=== PATIENT | female | born 1985 | race Caucasian/White ===

== ENCOUNTER 2019-01-08 01:10 | Inpatient (IN) | payer SELFPAY ==
[~2019-01-08] VITALS: Ht 170.2 cm; Wt 156.5 kg
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
[2019-01-08] MEDS ORDERED: VANCOMYCIN 1 GM in IV D5W 250 ML IV ONE (01:30)
--- NOTE | 2019-01-08 01:30 | NUR ---
PT BIBRA 62 C/O SUBSTERNAL CP W/ SOB X 2HRS RADIATING TO BACK. PT AXO4. RESPIRATIONS EVEN AND UNLABORED. NO SOB, NOTED. PT PUT ON THE CHRONIC DISEASE MANAGER AND PULSE OX.
[2019-01-08] MEDS ORDERED: VANCOMYCIN 1 GM VIAL ONE ×2 (01:33→01:36)
[2019-01-08 02:41] LABS: BASOPHILS # (AUTO) 0.2 /CMM (0.0-0.2); BASOPHILS % (AUTO) 1.9 % (0.0-2.0); EOSINOPHILS % (AUTO) 4.3 % (0.0-6.0); HEMATOCRIT 40 % (33-45); LYMPHOCYTES # (AUTO) 1.2 /CMM (0.8-4.8); LYMPHOCYTES % (AUTO) 11.5 % (20.0-44.0); MEAN CORPUSCULAR HGB CONC 33 g/dl (31.0-36.0); MEAN CORPUSCULAR VOLUME 83 fL (82-100); MONOCYTES # (AUTO) 0.4 /CMM (0.1-1.30); MONOCYTES % (AUTO) 4.2 % (2.0-12.0); NEUTROPHILS # (AUTO) 7.9 /CMM (1.8-8.9); NEUTROPHILS % (AUTO) 78.1 % (43.0-81.0); PLATELET COUNT (AUTO) 230 /CMM (150-450); RED BLOOD CELL COUNT(AUTO) 4.86 MIL/uL (4.0-5.2); WHITE BLOOD COUNT (AUTO) 10.1 K/uL (4.3-11.0)
[2019-01-08 02:44] LABS: CALCIUM, SERUM 8.9 mg/dL (8.5-10.1); CARBON DIOXIDE 28 mmol/L (21-32); CHLORIDE 103 mmol/L (98-107); CREATININE 0.6 mg/dL (0.6-1.3); GLUCOSE 90 mg/dL (74-106); POTASSIUM 3.9 mmol/L (3.5-5.1); SODIUM SERUM 137 mmol/L (136-145); UREA NITROGEN, BLOOD 14 mg/dL (7-18)
--- NOTE | 2019-01-08 02:55 | NUR ---
REDNESS NOTED AROUND IV SITE, DURING VANCOMYCIN INFUSION. INFUSION STOPPED. ER MD AWARE. WILL CARRY OUT ORDERS.
[2019-01-08] MEDS ORDERED: diphenhydrAMINE HCL 50 MG/ML VIAL ONE (02:57)
[2019-01-08] MEDS ORDERED: diphenhydrAMINE HCL 50 MG/ML VIAL IV ONE (03:00)
[2019-01-08] MEDS ORDERED: IV NS 0.9% 1,000 ML IV PRN (03:30)
[2019-01-08] MEDS ORDERED: ZOLPIDEM TARTRATE 5 MG TABLET PO PRN (03:30)
[2019-01-08] MEDS ORDERED: Z GUARD REMEDY 2 OZ OINT TP PRN (03:30)
[2019-01-08] MEDS ORDERED: ONDANSETRON HCL/PF 4 MG/2 ML VIAL IVP PRN (03:30)
[2019-01-08] MEDS ORDERED: diphenhydrAMINE HCL 50 MG/ML VIAL IV PRN (03:30)
[2019-01-08] MEDS ORDERED: HYDROCODONE/APAP 5/325MG 1 EACH TABLET PO PRN (03:30)
[2019-01-08] MEDS ORDERED: MAGNESIUM HYDROXIDE 30 ML UDC PO PRN (03:30)
[2019-01-08] MEDS ORDERED: ACETAMINOPHEN 325 MG TABLET PO PRN (03:30)
--- NOTE | 2019-01-08 04:10 | NUR ---
REPORT GIVEN TO ISHMAEL ROBLERO FOR SHAUN.
[2019-01-08 04:13] LABS: EOSINOPHILS % (MANUAL) 6 % (0-4); LYMPHOCYTES % (MANUAL) 16 % (16-48); MONOCYTES % (MANUAL) 5 % (0-11.0); NEUTROPHILS % (MANUAL) 73 (42-76)
[2019-01-08 04:30] VITALS: BP 90/47
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
--- NOTE | 2019-01-08 05:00 | NUR ---
MS RN NOTE CHECKED ON PATIENT FOR ALLERGIC REACTION NONE NOTED. PATIENT SLEEPING. EASILY AROUSABLE.
--- NOTE | 2019-01-08 07:00 | NUR ---
PATIENT DENIES SUICIDAL IDEATION AT THIS TIME.
[2019-01-08] MEDS ORDERED: FEE PK DOSING 1 MIN EA MC ONE (07:27)
[2019-01-08 08:00] VITALS: BP 95/53
[2019-01-08] MEDS ORDERED: VANCOMYCIN 1 GM in IV D5W 250 ML IV SCH (09:00)
--- NOTE | 2019-01-08 09:00 | NUR ---
PATIENT REFUSED TROPONIN DRAW AT THIS TIME.
[2019-01-08] MEDS ORDERED: VANCOMYCIN 1.5 GM in IV D5W 500 ML IV SCH (12:00)
--- NOTE | 2019-01-08 12:15 | NUR ---
SPOKE TO ANGELA FROM PHARMACY. MADE AWARE OF PATIENT'S COMPLAINTS OF REDNESS AT IV SITE WITH X1 ER VANCO INFUSION. SHE STATES IT IS DUE TO THE RATE, RUN AT LOWER RATE.
--- NOTE | 2019-01-08 12:23 | NUR ---
RUNNING VANCO @50mL/HR PER PHARMACY. WILL MONITOR FOR REDNESS AT IV SITE
--- NOTE | 2019-01-08 12:45 | NUR ---
NO SIGNS OF REDNESS AT IV SITE AT THIS TIME. INCREASED VANCO RATE TO 150mL/HR.
[2019-01-08] MEDS: ENOXAPARIN SODIUM 40 MG/0.4 ML DISP.SYRIN SQ SCH (13:29)
--- NOTE | 2019-01-08 14:00 | NUR ---
NO REDNESS AT IV SITE WITH VANCO INFUSION RUNNING @250mL/HR. WILL CONTINUE TO MONITOR
--- NOTE | 2019-01-08 14:37 | NUR ---
DR. DOWNEY HAS SEEN PATIENT. SHE IS AWARE OF IV SITE REDNESS WITH VANCO INFUSION. OK TO RUN AT A SLOWER RATE. DR. DOWNEY IS AWARE OF PTS REFUSAL FOR LAB DRAWS/INJECTIONS REQUESTS FOR MULTIPLE TRAYS OF FOOD.
--- NOTE | 2019-01-08 15:00 | NUR ---
PATIENT REFUSED TROPONIN RE-DRAW AGAIN.
[2019-01-08 16:00] VITALS: BP 137/71
--- NOTE | 2019-01-08 16:00 | NUR ---
PATIENT DENIES TAKING ANY HOME MEDS. MESSAGE RELAYED TO MED RECON
[2019-01-08] MEDS: NYSTATIN TOP POWDER 15 GM BOTTLE TP SCH (17:00)
--- NOTE | 2019-01-08 20:32 | NUR ---
RN NOTES 1999 HEARD PATIENT YELLING, SCREAMING, CURSING AT A STAFF INSIDE THE ROOM. INTERVENED AND FOUND OUT SHE HAS AN ORDER FOR SITTER BECAUSE SHE MENTIONED IN ER THAT SHE WAS SUICIDAL. AM RN RUSTAM CAME INTO THE ROOM AND EXPLAINED THAT IT WAS ORDERED BY DR. DOWNEY AND THAT SHE AGREED FOR A SITTER EARLIER. EXPLAINED TO PATIENT PROTOCOL ABOUT HAVING SUICIDAL IDEATION; SITTER HAS TO BE WITH HER UNTIL CLEARED BY MD THAT SHE IS SAFE. SHE DENIES BEING SUICIDAL; SHE DOES NOT WANT THE SITTER INSIDE THE ROOM, SHE WANTS SITTER TO STAY OUTSIDE OF HER ROOM, WANTS CURTAIN DRAWN AND DOOR CLOSED . PATIENT THREATENED TO GO AGAINST MEDICAL ADVISE. WILL STAY IF SITTER ORDER WILL BE DISCONTINUED. SPOKE TO Brittaney MUNOZ NP CT SCAN SPECIAL PROCEDURES TECHNOLOGIST FOR Gift Card Combo. WANTED CRISIS TEAM TO EVALUATE PATIENT; WILL NOT DISCONTINUE SITTER ORDER UNTIL CLEARED BY CRISIS TEAM. SPOKE TO GPS REFINING MACHINE OPERATORCLINTON AND ASKED ME TO CALL ENERGY MANAGER ABOUT IT. SPOKE TO KIMBERLY PRODUCT PLANNER AND EXPLAINED ABOVE SITUATION; HAD A 3WAY CALL WITH JM IN ER; MADE AWARE OF THE SITUATION; ALSO MENTIONED TO HIM THE ONLY FEMALE STAFF ALLOWED IN THE ROOM SO MAKE SURE TO COME SEE THE PRIMARY RN FIRST BEFORE GOING INTO THE ROOM. A FEMALE STAFF SHOULD BE WITH HER INSIDE THE ROOM. PRIMARY RN PAULINO . Addendum: 01/09/19 at 0454 by LIVE HAMMER RN 0 STILL REFUSES SITTER INSIDE HER ROOM. PRODUCT PLANNERKIMBERLY AWARE; NO CALL RECEIVED FROM JM. PATIENT WANTED TO AMBULATE AROUND BUT REFUSED THE SITTER, FLORENTINO SAAVEDRA TO WALK WITH HER. EXPLAINED TO PATIENT ABOUT HER SAFETY. PATIENT CALM; AGREED TO HAVE STAFF WITH HER BUT SHE PREFERS RACHEL TO WALK WITH HER. YONI RAMOS WALKED WITH HER WHILE THE FLORENTINO STEPHENS COVER HER PATIENTS IN THE UNIT. PATIENT WAS PLEASANT AND CALM WHILE AMBULATING. DENIES SOB/DISCOMFORT. 0000 PATIENT IN THE ROOM, STILL REFUSED SITTER IN THE ROOM. PREFERS CURTAIN DRAWN AND DOOR CLOSED DESPITE REPEATED EXPLANATION OF SAFETY MEASURES DUE TO SUICIDAL IDEATION. PATIENT STILL DENIES BEING SUICIDAL. 0430 NO FURTHER EPISODE OF SCREAMING OR YELLING AT STAFF; PATIENT CALM; NO IV SITE AT THIS TIME DUE TO REFUSAL REPORTED BY PRIMARY RN, PAULINO. STILL REFUSES SITTER. AWAITING FOR PSYCH RADHA; KIMBERLY, ENERGY MANAGER AWARE.
--- NOTE | 2019-01-08 20:43 | NUR ---
MS TRISTON MILLAN RN OPENING NOTES: RECIEVED PT IN STABLE CONDITION. WANTS ONLY FEMALE STAFF IN THE ROOM DUE TO PERSONAL REASONS THAT WERE CHARTED PREVIOUSLY. DOCTORS AND STAFF AWARE. PT IN NO ACUTE DISTRRESS. BED IN LOCKED LOW POSITION AND CALL LIGHT WITHIN REACH. WILLL CONTINUE TO MONITER.
--- NOTE | 2019-01-08 20:59 | NUR ---
PT PULLED OUT IV. IN RIGHT FOREARM. PT REFUSES TO HAVE A NEW ONE PT IN
[2019-01-08] MEDS: LINEZOLID 600 MG TABLET PO SCH (21:59)
[2019-01-09] VITALS: BP 136/71
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
--- NOTE | 2019-01-09 06:47 | NUR ---
RN NOTES AMBULATING WITH SHIPPING TEAM LEADER; WANTED TO GO SMOKE; GETTING UPSET WHEN EXPLAINED ABOUT SMOKE FREE POLICY. STARTING TO YELL. SENT A MESSAGE TO KIARRA GARRISON REVENUE FIELD AUDITOR ; BUT DOES NOT WANT TO WAIT ; SIGNED THE WAIVER FOR SMOKING. ASSISTED BY STAFF
[2019-01-09 08:00] VITALS: BP 138/74
--- NOTE | 2019-01-09 08:00 | NUR ---
MS1/RN AM SHIFT INITIAL NOTES RECEIVED PT AWAKE IN BED, A/O X 4, DENIES ANY SYMPTOMS, SITTER OUTSIDE, PT REFUSED SITTER INSIDE THE ROOM BUT IS BEING MONITORED CLOSELY. NO ACUTE CHANGE OF CONDITION OR DISTRESS NOTED, PT DENIES WANTING TO HURT HERSELF. ON ROOM AIR SATURATING @ 97%, RESPIRATIONS EVEN AND UNLABORED. PT HAS NO IV SITE, REFUSED INSERTION, MD AWARE. PT ALSO INITIALLY REFUSED BLOOD DRAW BUT I WAS ABLE TO CONVINCE HER, EXPLAINED THAT LAB DRAW IS NEEDED TO MONITOR THE PROGRESSION OF TREATMENT. LAB NOTIFIED TO RETURN TO PT'S ROOM FOR A DRAW. PT IS COMFORTABLE AT THIS TIME, SCHEDULED AM MEDS TO BE GIVEN. CL WITHIN REACHED AND SAFETY MAINTAINED. ON GOING MONITORING.
[2019-01-09 08:29] LABS: BASOPHILS % (AUTO) 0.5 % (0.0-2.0); EOSINOPHILS % (AUTO) 5.6 % (0.0-6.0); HEMATOCRIT 40 % (33-45); HEMOGLOBIN 12.7 g/dL (11.5-14.8); LYMPHOCYTES # (AUTO) 1.3 /CMM (0.8-4.8); LYMPHOCYTES % (AUTO) 17.9 % (20.0-44.0); MEAN CORPUSCULAR HGB CONC 32 g/dl (31.0-36.0); MEAN CORPUSCULAR VOLUME 82 fL (82-100); MONOCYTES # (AUTO) 0.3 /CMM (0.1-1.30); MONOCYTES % (AUTO) 4.2 % (2.0-12.0); NEUTROPHILS # (AUTO) 5.4 /CMM (1.8-8.9); NEUTROPHILS % (AUTO) 71.8 % (43.0-81.0); PLATELET COUNT (AUTO) 230 /CMM (150-450); RED BLOOD CELL COUNT(AUTO) 4.83 MIL/uL (4.0-5.2); WHITE BLOOD COUNT (AUTO) 7.5 K/uL (4.3-11.0)
[2019-01-09 08:40] LABS: CALCIUM, SERUM 8.7 mg/dL (8.5-10.1); CREATININE 0.7 mg/dL (0.6-1.3); MAGNESIUM 1.7 mg/dL (1.8-2.4); PHOSPHORUS 3.8 mg/dL (2.5-4.9)
[2019-01-09] MEDS: LINEZOLID 600 MG TABLET PO SCH (08:41)
[2019-01-09] MEDS: NYSTATIN TOP POWDER 15 GM BOTTLE TP SCH ×2 (08:41→16:26)
[2019-01-09] MEDS: ENOXAPARIN SODIUM 40 MG/0.4 ML DISP.SYRIN SQ SCH (08:42)
--- NOTE | 2019-01-09 09:35 | NUR ---
MS1/RN ROUNDS - DR. DOWNEY UPDATE PT'S CONDITION. PT NOTIFIED MD THAT PT REFUSED LOVENOX. PT SEEN & EXAMINED BY DR. DOWNEY, NO NEW NEW ORDER RECEIVED AT THIS TIME, BUT PT WILL BE GIVEN NICOTINE PATCH.
[2019-01-09] MEDS ORDERED: NICOTINE PATCH (21MG) 21 MG PATCH.TD24 TD SCH (10:00)
[2019-01-09] MEDS: Magnesium 1GM/D5W 100ML PREMIX 100 ML IV SCH ×2 (10:27→11:27)
[2019-01-09] MEDS: MAGNESIUM OXIDE 400 MG TABLET PO SCH ×2 (11:00→11:31)
--- NOTE | 2019-01-09 12:00 | NUR ---
MS1/RN ROUNDS - COMBATIVE ON ROUNDS, PT AWAKEN FROM SLEEP SUDDENLY BECAME VERY AGGRESSIVE, NOTIFIED . CALLED BETSY DEMPSEY.
--- NOTE | 2019-01-09 12:08 | NUR ---
MS1/ORTHO ASSISTANT OF CARE REPORT GIVEN TO NURSE HORVATH, ENDORSED TO CONTINUE CARE.
[2019-01-09] MEDS ORDERED: LORAZEPAM 1 MG TABLET PO PRN (12:30)
[2019-01-09] MEDS ORDERED: HALOPERIDOL LACTATE INJ 5 MG/ML VIAL IM ONE (12:30)
--- NOTE | 2019-01-09 12:30 | NUR ---
jaswinder note pt became calm after security left the unit. needs met and addressed. Addendum: 01/09/19 at 1625 by ALEXANDRU JASSO RN haldol not given at 1230, pt calm.
--- NOTE | 2019-01-09 13:55 | NUR ---
rn note pt calm, denies suicidal ideation, wants to take a nap. earlier co of sob, while sitting in bathroom, went to bed with assistance and put on NC oxygen 4 l/min. saturation 99%. requested breathing treatment, but later refused breathing treatment stating "I will have it later."
[2019-01-09] MEDS ORDERED: ALBUTEROL FS 2.5 MG/0.5 ML VIAL.NEB NEB PRN (14:00)
[2019-01-09] MEDS ORDERED: BISACODYL (5 MG) 5 MG TABLET.DR PO PRN (14:00)
[2019-01-09 16:00] VITALS: BP 115/78
[2019-01-09 18:30] VITALS: BP 112/63
--- NOTE | 2019-01-09 19:30 | NUR ---
rn note at 1820 pt co of numbness and tingling in right leg and hand, R side headache, and weakness, throat hurting, difficulty breathing, vital stable on oxygen via NC 4 l/min, saturation 100%, doctor Maxine reis, ordered stat head CT and done, waiting for result.
--- NOTE | 2019-01-09 19:39 | NUR ---
RN MS OPENING NOTES RECEIVED PT IN BED, AWAKE ALERT ORIENTEDX3-4, BREATHING EVEN AND UNLABORED ON 2L O2 VIA NC. NO COMPLAINT OF PAIN OR DISCOMFORT AT THIS TIME. NO IV ACCESS, PT REFUSED. SITTER AT BEDSIDE. BED IN LOWEST LOCKED POSITION, CALL LIGHT WITHIN REACH AT ALL TIMES. PT DENIES SUICIDAL IDEATIONS OR HALLUCINATIONS AT THIS TIME. WILL CONTINUE TO MONITOR FREQUENTLY/
--- NOTE | 2019-01-09 20:36 | NUR ---
AGUSTÍN PT LEFT HOSPITAL AMA AT 2030, AFTER WE DENIED HER PETITION TO WALK AROUND THE OUTSIDE OF THE HOSPITAL TO ASK FOR CIGARETTES, AFTER SPEAKING TO PREVENTIVE MAINTENANCE COORDINATOR ALAYNA WHITTAKER REFUSED TO SIGN [place] PAPERS, PICKED UP HER BELONGINGS AND LEFT.
[2019-01-10] MEDS ORDERED: NICOTINE PATCH (21MG) 21 MG PATCH.TD24 TD SCH (10:00)
== END 2019-01-09 20:30 | disposition left against medical advice (07) | DRG 603 ==
LOC: ER 01:14 → MEDSG1 03:52
PROVIDERS: ADMIT Student in an Organized Health Care Education/Training Program; ATTEND Student in an Organized Health Care Education/Training Program
DX: L03.311 Cellulitis of abdominal wall (principal); R45.851 Suicidal ideations; Z68.43 Body mass index [BMI] 50.0-59.9, adult; L03.119 Cellulitis of unspecified part of limb; Z81.8 Family history of other mental and behavioral disorders; Z59.0 Homelessness; I25.2 Old myocardial infarction; Z88.1 Allergy status to other antibiotic agents; Z88.8 Allergy status to other drugs, medicaments and biological substances; Z91.048 Other nonmedicinal substance allergy status; L68.0 Hirsutism; L30.4 Erythema intertrigo; G47.33 Obstructive sleep apnea (adult) (pediatric); Z72.0 Tobacco use; F32.9 Major depressive disorder, single episode, unspecified
CPT/HCPCS: 36415; 70450-TC; 71045-TC; 80048-TC; 80061-TC; 83605-TC; 83735-TC; 84100-TC; 84484-TC; 84703-TC; 85025-TC; 85730-TC; 87040-TC; 87081-TC; 93307-TC; G0378; J1200; J1650; J3370; J7030; J7060